=== PATIENT | female | born 2000 | race Hispanic/Latino ===

== ENCOUNTER 2023-02-22 13:34 | Emergency (ER) | payer MEDICAID ==
[~2023-02-22] VITALS: Ht 157.5 cm; Wt 65.8 kg
[2023-02-22] MEDS ORDERED: LIDOCAINE HCL 2% VISCOUS 15 ML UDCUP PO ONE (14:00)
[2023-02-22] MEDS ORDERED: MAG/ALUM/SIMETH 30 ML UDCUP PO ONE (14:00)
[2023-02-22] MEDS ORDERED: DICYCLOMINE HCL 10 MG/5 ML ML PO ONE (14:00)
[2023-02-22 14:34] LABS: BASOPHILS % (AUTO) 0.1 % (0.0-5.0); EOSINOPHILS % (AUTO) 1.5 % (0.0-8.0); HEMATOCRIT 39.8 % (36-48); LYMPHOCYTES % (AUTO) 20.9 % (21.0-51.0); MEAN CORPUSCULAR HEMOGLOBIN 26.9 pg (27.0-33.0); MEAN CORPUSCULAR HGB CONC 32.2 g/dL (32.0-36.0); MEAN CORPUSCULAR VOLUME 83.8 fL (79-99); MONOCYTES % (AUTO) 5.5 % (3.0-13.0); NEUTROPHILS % (AUTO) 71.7 % (40.0-77.0); PLATELET COUNT (AUTO) 219 K/uL (130-400); RED BLOOD CELL COUNT(AUTO) 4.75 MIL/uL (4.00-5.50); RED CELL DISTRIBUTION WIDTH 14.3 % (11.0-15.5); WHITE BLOOD COUNT (AUTO) 7.9 K/uL (4.8-10.8)
[2023-02-22 14:35] LABS: APPEARANCE,URINE CLEAR (CLEAR); BILIRUBIN,URINE NEGATIVE (NEGATIVE); COLOR,URINE YELLOW (YELLOW); GLUCOSE, URINE (UA) NEGATIVE (NEGATIVE); KETONES,URINE NEGATIVE (NEGATIVE); LEUKOCYTE ESTERASE ,URINE NEGATIVE Leu/uL (NEGATIVE); NITRATE,URINE NEGATIVE (NEGATIVE); PROTEIN,URINE 20 mg/dL (NEGATIVE)
[2023-02-22 14:53] LABS: CREATININE 0.7 mg/dL (0.5-1.5); HCG,QUALITATIVE URINE NEGATIVE (NEGATIVE); POTASSIUM 3.7 mmol/L (3.5-5.1)
[2023-02-22 14:54] LABS: BACTERIA,URINE RARE /HPF (None Seen); MUCUS,URINE FEW LPF (None Seen); SQUAMOUS EPITHELIAL CELL,UR RARE /HPF (0-2)
[2023-02-22 14:58] LABS: TOTAL PROTEIN, SERUM 7.8 g/dL (6.0-8.3)
[2023-02-22 15:04] VITALS: BP 115/64
[2023-02-22] MEDS ORDERED: OMEP20TA2 PO (15:04)
== END 2023-02-22 15:10 | disposition home or self-care (01) ==
LOC: EDH 13:34
DX: R10.13 Epigastric pain (principal)
CPT/HCPCS: 36415; 76705; 80053; 81001; 81025; 85025